=== PATIENT | male | born 1950 | race African-American/Black ===

== ENCOUNTER 2018-08-10 12:23 | Inpatient (IN) | payer MEDICARE, MEDICAID ==
[2018-08-10] VITALS (10 sets, daily range): BP systolic 121–140; BP diastolic 68–85
[~2018-08-10] VITALS: Ht 167.6 cm; Wt 57.7 kg
[2018-08-10] MEDS ORDERED: SODIUM CHLORIDE 0.9% 1,000 ML IV ONE ×2 (12:54→14:09)
[2018-08-10] MEDS ORDERED: INSULIN REGULAR (HUMULIN R) 300UNITS/3ML SUBCUT ONE (13:00)
[2018-08-10 13:31] LABS: CHLORIDE 96 mEq/L (98-107)
[2018-08-10 13:35] LABS: ETHANOL BLOOD < 10 mg/dL
[2018-08-10 13:37] LABS: INR 1.1; PARTIAL THROMBOPLASTIN TIME 28.5 sec (23.4-31.0); PROTHROMBIN TIME 10.6 sec (9.1-11.1)
[2018-08-10 13:46] LABS: BASOPHILS % 0.3 % (0.0-2.0); EOSINOPHILS % 0.2 % (0.0-5.0); HEMATOCRIT. 45.9 % (42.0-52.0); HEMOGLOBIN. 14.3 g/dL (14.0-18.0); LYMPHOCYTES % 10.5 % (20.0-50.0); MEAN CORPUSCULAR HEMOGLOBIN 28.4 pg (28.0-32.0); MEAN CORPUSCULAR VOLUME 91.4 fL (80.0-94.0); MEAN PLATELET VOLUME 10.2 fl (7.4-10.4); PLATELET 222 x1000/uL (130-400); RED BLOOD CELL COUNT 5.02 mill/uL (4.7-6.1); RED CELL DISTRIBUTION WIDTH 15.4 % (11.6-14.6)
[2018-08-10 14:05] LABS: CARBAMAZEPINE < 0.5 ug/mL (4-12)
[2018-08-10 14:07] LABS: PHENOBARBITAL < 2.1 ug/mL (15.0-40.0)
[2018-08-10] MEDS ORDERED: KCL 10MEQ/50ML PREMIX 50 ML IV ONE (14:15)
[2018-08-10] MEDS ORDERED: INSULIN REGULAR (DRIP) 100 UNITS in SODIUM CHLORIDE 0.9% 100 ML IV ONE ×2 (14:15→15:30)
[2018-08-10] MEDS ORDERED: INSULIN REGULAR (HUMULIN R) UD 100 UNITS/ML SYR IV ONE (14:15)
[2018-08-10] MEDS ORDERED: PHENYTOIN SODIUM 1,000 MG in SODIUM CHLORIDE 0.9% 100 ML IV ONE (14:45)
[2018-08-10] MEDS ORDERED: ASPIRIN 325MG EC TABLET PO ONE (15:15)
[2018-08-10] MEDS ORDERED: IPRATROPIUM/ALBUTEROL 0.5-3(2.5)MG/3ML NEB INH PRN (16:15)
[2018-08-10] MEDS ORDERED: LORAZEPAM 2MG/ML CPJ IV PRN (16:15)
[2018-08-10] MEDS ORDERED: SODIUM CHLORIDE 0.9% 1000ML BAG (SEPSIS BOLUS) IV ONE (16:15)
[2018-08-10] MEDS ORDERED: MAGNESIUM/ALUMINUM HYDROXIDE/SIMETHICONE 30ML UDC PO PRN (16:15)
[2018-08-10] MEDS ORDERED: ONDANSETRON HCL 4MG/2ML INJ IV PRN (16:15)
[2018-08-10] MEDS ORDERED: ACETAMINOPHEN 325MG TABLET PO PRN (16:15)
[2018-08-10] MEDS ORDERED: GUAIFENESIN 200MG/10ML SUGAR FREE UDC PO PRN (16:15)
[2018-08-10] MEDS ORDERED: NITROGLYCERIN 0.4MG TABLET SL SL PRN (16:15)
[2018-08-10] MEDS ORDERED: DOCUSATE SODIUM 100MG CAPSULE PO PRN (16:15)
[2018-08-10] MEDS ORDERED: DEXTROSE 50% WATER 50ML SYRINGE IV PRN ×2 (17:00→19:00)
[2018-08-10] MEDS ORDERED: TRAMADOL 50MG TABLET PO PRN (17:00)
[2018-08-10] MEDS: BLOOD SUGAR DIAGNOSTIC STRIP TEST SCH ×5 (19:00→23:40)
[2018-08-10] MEDS ORDERED: INSULIN REGULAR (DRIP) 100 UNITS in SODIUM CHLORIDE 0.9% 99 ML IV SCH (19:00)
[2018-08-10] MEDS ORDERED: ENOXAPARIN 30MG/0.3ML SYR SUBCUT SCH (20:00)
[2018-08-10 20:12] LABS: FOLIC ACID (FOLATE) SERUM >20 ng/mL ng/mL (>5.38)
[2018-08-10 20:22] LABS: PHOSPHORUS 1.7 mg/dL (2.5-4.9)
[2018-08-10 20:24] LABS: VITAMIN B12 SERUM 1954 pg/mL (211-911)
[2018-08-10] MEDS: CEFTRIAXONE 1,000 MG in DEXTROSE 5% WATER 50 ML IV SCH (20:59)
[2018-08-10] MEDS ORDERED: LEVOFLOXACIN 500MG PREMIX 100 ML IV NR (21:00)
[2018-08-10] MEDS ORDERED: ZOLPIDEM TARTRATE 5MG TABLET PO PRN (21:00)
[2018-08-10] MEDS: SODIUM CHLORIDE 0.9% 1,000 ML IV SCH (21:06)
[2018-08-10 21:27] LABS: T4 FREE 1.21 ng/dL (0.76-1.46)
[2018-08-10] MEDS: METOPROLOL TARTRATE 25MG TABLET PO SCH (21:52)
[2018-08-10 23:16] LABS: CREATINE KINASE MB FRACTION 2.5 ng/mL (0.5-3.6)
[2018-08-10] MEDS ORDERED: INFLUENZA VIRUS VACCINE(AFLURIA) 0.5ML SYR IM ONE (23:30)
[2018-08-11] VITALS (46 sets, daily range): BP systolic 123–187; BP diastolic 16–116
[2018-08-11] MEDS: BLOOD SUGAR DIAGNOSTIC STRIP TEST SCH ×9 (00:08→20:46)
[2018-08-11] MEDS: SODIUM CHLORIDE 0.9% 1,000 ML IV SCH ×4 (04:08→23:31)
[2018-08-11 07:15] LABS: CREATINE KINASE MB FRACTION 2.6 ng/mL (0.5-3.6)
[2018-08-11 08:27] LABS: BASOPHILS % 0.7 % (0.0-2.0); EOSINOPHILS % 1.1 % (0.0-5.0); HEMOGLOBIN. 13.8 g/dL (14.0-18.0); LYMPHOCYTES % 16.4 % (20.0-50.0); MEAN CORPUSCULAR HEMOGLOBIN 28.2 pg (28.0-32.0); MEAN CORPUSCULAR VOLUME 87.7 fL (80.0-94.0); MEAN PLATELET VOLUME 10.4 fl (7.4-10.4); MONOCYTES % 7.9 % (2.0-8.0); NEUTROPHILS % 73.9 % (40.0-76.0); PLATELET 246 x1000/uL (130-400)
[2018-08-11 08:34] LABS: CHLORIDE 115 mEq/L (98-107)
[2018-08-11 08:39] LABS: PHOSPHORUS 1.8 mg/dL (2.5-4.9)
[2018-08-11] MEDS ORDERED: DEXTROSE 50% WATER 50ML SYRINGE IV PRN (08:45)
[2018-08-11] MEDS: INSULIN LISPRO 100 UNITS/ML SUBCUT SCH ×6 (09:00→21:10)
[2018-08-11] MEDS ORDERED: CEFTRIAXONE 1 G PREMIX 50 ML IV SCH (09:00)
[2018-08-11] MEDS: INSULIN GLARGINE UD 100 UNITS/ML SYR SUBCUT SCH (09:47)
[2018-08-11] MEDS: PANTOPRAZOLE SODIUM 40 MG/VIAL IV SCH (09:59)
[2018-08-11] MEDS: METOPROLOL TARTRATE 25MG TABLET PO SCH ×2 (10:00→20:46)
[2018-08-11] MEDS ORDERED: POTASSIUM PHOS,M-BASIC-D-BASIC 20 MMOL in DEXT 5% WATER 243.3333 ML IV SCH (10:00)
[2018-08-11] MEDS: ASPIRIN 325MG EC TABLET PO SCH (10:00)
[2018-08-11] MEDS: CLONIDINE 0.1MG TABLET PO PRN (10:43)
[2018-08-11 17:20] LABS: CLARITY URINE CLEAR (CLEAR); COLOR URINE YELLOW (YELLOW); KETONES URINE TRACE (NEGATIVE); LEUKOCYTE ESTERASE URINE NEGATIVE (NEGATIVE); NITRITE URINE NEGATIVE (NEGATIVE); OCCULT BLOOD URINE 1+ (NEGATIVE); PH URINE 5.5 (4.5-8.0); PROTEIN URINE 1+ (NEGATIVE); SPECIFIC GRAVITY URINE 1.011 (1.005-1.030); UROBILINOGEN URINE 0.2 E.U./dL (0.2-1.0)
[2018-08-11 18:23] LABS: *AMPHETAMINES SCREEN URINE NEGATIVE (NEGATIVE)
[2018-08-11 18:24] LABS: *BARBITURATES SCREEN URINE NEGATIVE (NEGATIVE); *BENZODIAZEPINES SCREEN URINE NEGATIVE (NEGATIVE); *COCAINE SCREEN URINE NEGATIVE (NEGATIVE); METHADONE URINE SCREEN NEGATIVE (NEGATIVE); OPIATES URINE SCREEN NEGATIVE (NEGATIVE)
[2018-08-11 18:25] LABS: CANNABINOID URINE SCREEN NEGATIVE (NEGATIVE); PHENCYCLIDINE URINE SCREEN NEGATIVE (NEGATIVE)
[2018-08-11] MEDS: CEFTRIAXONE 1,000 MG in DEXTROSE 5% WATER 50 ML IV SCH (20:45)
[2018-08-11] MEDS: LEVOFLOXACIN 250MG PREMIX 50 ML IV SCH (20:46)
[2018-08-11] MEDS: ENOXAPARIN 40MG/0.4ML SYR SUBCUT SCH (21:12)
[2018-08-12] VITALS (47 sets, daily range): BP systolic 86–179; BP diastolic 51–134
[2018-08-12] MEDS: SODIUM CHLORIDE 0.9% 1,000 ML IV SCH ×3 (06:13→17:34)
[2018-08-12 06:20] LABS: BASOPHILS % 0.6 % (0.0-2.0); CHLORIDE 108 mEq/L (98-107); HEMOGLOBIN. 13.1 g/dL (14.0-18.0); LYMPHOCYTES % 20.1 % (20.0-50.0); MEAN CORPUSCULAR VOLUME 87.6 fL (80.0-94.0); MEAN PLATELET VOLUME 10.1 fl (7.4-10.4); MONOCYTES % 6.9 % (2.0-8.0); NEUTROPHILS % 71.4 % (40.0-76.0); PLATELET 184 x1000/uL (130-400); RED BLOOD CELL COUNT 4.68 mill/uL (4.7-6.1); RED CELL DISTRIBUTION WIDTH 15.2 % (11.6-14.6)
[2018-08-12 06:25] LABS: PHOSPHORUS 2.4 mg/dL (2.5-4.9)
[2018-08-12] MEDS: INSULIN LISPRO 100 UNITS/ML SUBCUT SCH ×5 (07:50→21:42)
[2018-08-12] MEDS: BLOOD SUGAR DIAGNOSTIC STRIP TEST SCH ×3 (07:50→21:02)
[2018-08-12] MEDS: INSULIN GLARGINE UD 100 UNITS/ML SYR SUBCUT SCH (11:07)
[2018-08-12] MEDS: ASPIRIN 325MG EC TABLET PO SCH (11:11)
[2018-08-12] MEDS: PANTOPRAZOLE SODIUM 40 MG/VIAL IV SCH (11:11)
[2018-08-12] MEDS: METOPROLOL TARTRATE 25MG TABLET PO SCH ×2 (11:12→21:01)
[2018-08-12] MEDS: CLONIDINE 0.1MG TABLET PO PRN (13:07)
[2018-08-12] MEDS: ENOXAPARIN 40MG/0.4ML SYR SUBCUT SCH (21:00)
[2018-08-12] MEDS: LEVOFLOXACIN 250MG PREMIX 50 ML IV SCH (21:01)
[2018-08-12] MEDS: CEFTRIAXONE 1 G PREMIX 50 ML IV SCH (22:51)
[2018-08-13] VITALS (23 sets, daily range): BP systolic 125–171; BP diastolic 64–115
[2018-08-13] MEDS: SODIUM CHLORIDE 0.9% 1,000 ML IV SCH ×2 (00:20→07:12)
[2018-08-13] MEDS: ASPIRIN 325MG EC TABLET PO SCH (09:26)
[2018-08-13] MEDS: PANTOPRAZOLE SODIUM 40 MG/VIAL IV SCH (09:26)
[2018-08-13] MEDS: METOPROLOL TARTRATE 25MG TABLET PO SCH ×2 (09:27→21:50)
[2018-08-13] MEDS: INSULIN LISPRO 100 UNITS/ML SUBCUT SCH ×3 (09:29→21:55)
[2018-08-13] MEDS: INSULIN GLARGINE UD 100 UNITS/ML SYR SUBCUT SCH (10:53)
[2018-08-13] MEDS: BLOOD SUGAR DIAGNOSTIC STRIP TEST SCH ×2 (17:20→21:39)
[2018-08-13] MEDS: ENOXAPARIN 40MG/0.4ML SYR SUBCUT SCH (21:56)
[2018-08-13] MEDS: CEFTRIAXONE 1 G PREMIX 50 ML IV SCH (23:24)
[2018-08-14] VITALS: BP 119/69
[2018-08-14] MEDS: LEVOFLOXACIN 250MG PREMIX 50 ML IV SCH (00:16)
[2018-08-14 04:00] VITALS: BP 137/79
[2018-08-14] MEDS: BLOOD SUGAR DIAGNOSTIC STRIP TEST SCH ×3 (07:20→18:08)
[2018-08-14 07:57] VITALS: BP 143/68
[2018-08-14] MEDS: METOPROLOL TARTRATE 25MG TABLET PO SCH (08:02)
[2018-08-14] MEDS: ASPIRIN 325MG EC TABLET PO SCH (08:02)
[2018-08-14] MEDS: PANTOPRAZOLE SODIUM 40 MG/VIAL IV SCH (08:03)
[2018-08-14] MEDS: INSULIN LISPRO 100 UNITS/ML SUBCUT SCH ×3 (08:09→17:50)
[2018-08-14] MEDS ORDERED: INSULIN GLARGINE UD 100 UNITS/ML SYR SUBCUT SCH (11:00)
[2018-08-14 12:00] VITALS: BP 142/76
[2018-08-14 14:58] VITALS: BP 142/76
[2018-08-14 16:00] VITALS: BP 150/104
== END 2018-08-14 18:05 | disposition home health service (06) | DRG 53 ==
LOC: ER 12:36 → CVICU 15:14 → SUPCPDRO 16:10 → ENRESERV 17:00 → 6EST 08-13 15:10
PROVIDERS: ADMIT Internal Medicine; ATTEND Internal Medicine
DX: G40.909 Epilepsy, unspecified, not intractable, without status epilepticus (principal); N17.0 Acute kidney failure with tubular necrosis; G92 Toxic encephalopathy; E11.10 Type 2 diabetes mellitus with ketoacidosis without coma; I10 Essential (primary) hypertension; D72.829 Elevated white blood cell count, unspecified; E87.1 Hypo-osmolality and hyponatremia; W01.0XXA Fall on same level from slipping, tripping and stumbling without subsequent striking against object, initial encounter; Z86.73 Personal history of transient ischemic attack (TIA), and cerebral infarction without residual deficits; Z91.14 Patient's other noncompliance with medication regimen; Y93.89 Activity, other specified; Y92.89 Other specified places as the place of occurrence of the external cause; Y99.8 Other external cause status; E87.0 Hyperosmolality and hypernatremia
CPT/HCPCS: 36415; 71045; 76770; 80048; 80061; 80156; 80165; 80184; 80185; 80305; 80320; 82010; 82550; 82553; 82607; 82746; 82962; 83036; 83540; 83550; 83605; 83735; 84100; 84439; 84443; 84484; 93005; 93306; 93970; 96365; 96372; 97162; 97166; 97530; 99291; C9113; J0696; J1165; J1650; J1815; J1956; J3490; J7030; J7050; J7060; G0480